=== PATIENT | male | born 1990 | race Two or more races ===

== ENCOUNTER → 2017-04-23 | Outpatient (CLI) | payer OTHER | END | disposition home or self-care (01) | LOC: LAB 15:06 | PROVIDERS: ATTEND Surgery | DX: Z02.1 Encounter for pre-employment examination (principal) | CPT/HCPCS: 36415; 86706; 86735; 86762; 86765; 86787 ==

== ENCOUNTER 2018-09-29 10:27 | Emergency (ER) | payer MEDICAID, OTHER ==
[~2018-09-29] VITALS: Ht 188 cm; Wt 103.4 kg
[2018-09-29 12:26] VITALS: BP 157/91
[2018-09-29] MEDS ORDERED: METHOCARBAMOL 500 MG TAB PO ONE (13:45)
[2018-09-29] MEDS ORDERED: KETOROLAC TROMETH 60MG/2ML VIAL IM ONE (13:45)
== END 2018-09-29 14:54 | disposition home or self-care (01) ==
LOC: ER 10:27
DX: S40.012A Contusion of left shoulder, initial encounter (principal); R51 Headache; E11.9 Type 2 diabetes mellitus without complications; I10 Essential (primary) hypertension; F12.10 Cannabis abuse, uncomplicated; V43.62XA Car passenger injured in collision with other type car in traffic accident, initial encounter; Y93.89 Activity, other specified; Y92.488 Other paved roadways as the place of occurrence of the external cause; Y99.8 Other external cause status
CPT/HCPCS: 73030; 99283; J1885